=== PATIENT | male | born 2000 | race Caucasian/White ===

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

== ENCOUNTER 2020-07-08 15:28 | Outpatient (CLI) | payer BC, OTHER, SELFPAY ==
[2020-07-08 16:00] LABS: Monoscreen Negative (Negative); Negative Monotest Control Negative (Negative); Positive Monotest Control Positive (Positive)
[2020-07-09 14:22] LABS: SARS-CoV-2 RNA PCR Negative
== END 2020-07-08 15:29 | disposition home or self-care (01) ==
PROVIDERS: PCP Nurse Practitioner Family; Visit Provider Nurse Practitioner Family
DX: R53.81 Other malaise (principal); R53.83 Other fatigue; Z20.828 Contact with and (suspected) exposure to other viral communicable diseases
CPT/HCPCS: 36415; 86308; 87635; C9803; U0003

== ENCOUNTER 2021-01-06 14:55 | Outpatient (CLI) | payer BC, SELFPAY ==
--- NOTE | ~2021-01-06 | XR_ITS ---
EXAMINATION: XR foot LT 2V DATE: 01/06/2021 15:10 INDICATION: General left foot pain TECHNIQUE: Dorsoplantar and lateral views of the left foot were obtained. COMPARISON: None. FINDINGS: Alignment is normal. No fracture. 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 Small marginal osteophytes including along the dorsal head of the f irst metatarsal. Remaining joint spaces in the left foot appear normal. The tibiotalar joint is poorl y profiled limiting assessment for joint space narrowing. Small Achilles calcaneal spur. Soft tissues are unremarkable. IMPRESSION: 1. No acute osseous abnormality. Reviewed, dictated and finalized at location A.
== END 2021-01-06 14:56 | disposition home or self-care (01) ==
LOC: CHSIMG 14:58
PROVIDERS: PCP Nurse Practitioner Family; Visit Provider Nurse Practitioner Family
DX: M79.672 Pain in left foot (principal)
CPT/HCPCS: 73620

== ENCOUNTER 2021-07-09 17:56 | Emergency (ER) | payer BC, SELFPAY ==
[2021-07-09 18:05] VITALS: BP 139/84; PULSE 104; RESP 16; TEMP 37.1; O2SAT 98
--- NOTE | 2021-07-09 18:32 | ED.LOWEXIN ---
HPI - Extremity Injury (Lower) General Chief Complaint: Extremity Injury, Lower Stated Complaint: RT Foot injury Source: patient Mode of arrival: ambulatory History of Present Illness HPI Narrative: this is a 20-year-old male patient presents with right foot pain on the plantar surface does work on his feet all day at at work and is working on a hard concrete surface currently there is no injuries no swelling no bruising has good range of motion. complaint: other ( right foot pain) Injury: Right: foot ( plantar surface tender) Place: work Severity: moderate Related Data Allergies Allergy/AdvReac Type Severity Reaction Status Date / Time No Known Allergies Allergy Verified 07/09/21 18:15 Review of Systems Review of Systems: All systems reviewed & are unremarkable except as noted in HPI and below PMFSH Past Medical History Medical History (Updated 07/09/21 @ 18:35 by Sourav Bowens MD) BMI 40.0-44.9, adult Depression ARCHIE (generalized anxiety disorder) Social History Social History Smoking status: Never smoker Tobacco type: cigarettes Alcohol intake: never Substance use: former Substance use type: does not use and former substance user Gender identity (if verbalized by the patient): Male Exam Const: General: no acute distress Orientation/consciousness: patient oriented x3 HENMT: Head: normal to inspection Eyes: Pupils: Equal, round and reactive pupils present Neck: Neck: normal visual inspection Chest: Chest palpation & inspection: normal inspection of the chest Resp: Effort & Inspection: normal respiratory effort Auscultation: clear to auscultation bilaterally Cardio: Rate: regular rate Rhythm: regular rhythm GI: GI Palp: Yes Soft to palpation Percussion: Yes normal to percussion Back/Spine/Pelvis: Back: no CVA tenderness Skin: General skin exam: normal color Rashes: no rashes Neuro: General: patient oriented x3, moves all extremities, no meningeal signs and no focal motor deficits Extrem: General: normal to inspection and no pedal edema Other: Tender plantar surface of his right foot Psych: Mental Status: mental status grossly normal Affect: normal affect Course Course Emergency Course: pain elicited with palpation of the plantar surface of his right foot, Toradol was administered and patient advised to follow-up with primary care physician. Critical Care Time Critical Care Time Critical Care Time: No Discharge Plan Discharge Clinical Impression: Plantar fasciitis of right foot Patient Disposition: Home, Self-Care Condition: Stable Instructions: Antibiotic Form, Plantar Fasciitis (ED), Plantar Fasciitis Exercises (ED) Additional Instructions: advised take medicine as prescribed and use insoles and follow-up primary care physician. Prescriptions: New naproxen 500 mg tablet 500 mg PO BID Qty: 14 RF: 0 Follow-up/Referrals: Roxana Hernandez NP [Primary Care Provider] - Stand Alone Forms: Work/School Release IP Time of Disposition: 18:38
[2021-07-09] MEDS: KETOROLAC (*BKC) 60 MG/2 ML VIAL IM (19:00)
[2021-07-09 19:15] VITALS: BP 167/87; PULSE 91; RESP 14; O2SAT 94
== END 2021-07-09 19:20 | disposition home or self-care (01) ==
PROVIDERS: Emergency Provider Emergency Medicine; PCP Nurse Practitioner Family
DX: M72.2 Plantar fascial fibromatosis (principal)
CPT/HCPCS: 96372; 99283; J1885

== ENCOUNTER 2021-09-02 18:45 | Emergency (ER) | payer BC, SELFPAY ==
--- NOTE | 2021-09-02 19:00 | ED.NAVMDI ---
HPI - Nausea/Vomiting/Diarrhea General Chief complaint: Nausea/Vomiting/Diarrhea Stated complaint: vomiting, diarrhea Time Seen by Provider: 09/02/21 19:00 Source: patient Mode of arrival: ambulatory Limitations: no limitations History of Present Illness HPI Narrative: 20-year-old with a history of generalized anxiety disorder, depression presented to the ER with a 1 day history of -- nausea with multiple episodes of vomiting. total 5 episodes of vomiting -- multiple episodes of watery diarrhea. Total 8 episodes of diarrhea. -- diffuse abdominal pain. No fever MD elicited complaint: nausea, vomiting, diarrhea and abdominal pain Onset (ago): day(s) ( 1 day) Description of vomiting: watery Description of diarrhea: watery Associated nausea: Yes Associated abdominal pain: Yes Location of pain: diffuse Exacerbating factors: none Relieving factors: none Associated symptoms: denies other symptoms Treatment prior to arrival: other ( Pepto-Bismol) Related Data Allergies Allergy/AdvReac Type Severity Reaction Status Date / Time No Known Allergies Allergy Verified 07/09/21 18:15 Review of Systems Review of Systems: All systems reviewed & are unremarkable except as noted in HPI and below Constitutional: Constitutional: Reports as per HPI Eyes: Eyes: Reports as per HPI ENT: Reports system reviewed and no additional complaints, except as documented Cardiovascular: Cardiovascular: Reports as per HPI and Reports no additional cardiovascular complaints Respiratory: Respiratory: Reports as per HPI and Reports no additional respiratory complaints Gastrointestinal: Gastrointestinal: Reports as per HPI, Reports abdominal pain, Reports diarrhea, Reports nausea and Reports vomiting Genitourinary: Genitourinary: Reports no additional male genitourinary complaints Musculoskeletal: Musculoskeletal: Reports no additional musculoskeletal complaints Integumentary/Breasts: Skin/Breast: Reports system reviewed and no additional complaints, except as docu Neurologic: Reports system reviewed and no additional complaints, except as documented Psychiatric: Psychiatric: Reports no additional psychiatric complaints and Reports as per HPI Endocrine: Endocrine: Reports no additional endocrine complaints Hematologic/Lymphatic: Hematologic/Lymphatic: Reports no additional hematologic/lymphatic complaints Allergic/Immunologic: Allergic/Immunologic: Reports no additional allergic/immunologic complaints [facility] Past Medical History Medical History (Updated 09/02/21 @ 20:17 by Trey العارقي MD) BMI 40.0-44.9, adult Depression ARCHIE (generalized anxiety disorder) Social History Social History Smoking status: Never smoker Tobacco type: cigarettes Alcohol intake: never Substance use: former Substance use type: does not use and former substance user Gender identity (if verbalized by the patient): Male Exam Const: General: no acute distress Orientation/consciousness: patient oriented x3 HENMT: Head: normal to inspection Eyes: Cornea: corneas normal Pupils: Equal, round and reactive pupils present EOM: EOMs intact bilaterally Neck: Neck: normal visual inspection and no lymphadenopathy Chest: Chest palpation & inspection: normal inspection of the chest Resp: Effort & Inspection: normal respiratory effort Cardio: Rate: regular rate Rhythm: regular rhythm GI: GI Palp: Yes Soft to palpation : Testes: Testes normal Back/Spine/Pelvis: Back: no CVA tenderness Skin: General skin exam: normal color Neuro: General: patient oriented x3, moves all extremities, no meningeal signs and no focal motor deficits Extrem: General: normal to inspection Psych: Appearance: grossly normal Mental Status: mental status grossly normal Thought content: Yes Normal thought content present Course Vital Signs Vital signs: Vital Signs Temperature 36.5 C 09/02/21 19
[2021-09-02 19:03] VITALS: BP 127/83; PULSE 104; RESP 18; TEMP 36.5; O2SAT 97
[2021-09-02] MEDS: ONDANSETRON HCL ODT 4 MG TABLET PO ×2 (19:21→20:30)
[2021-09-02 19:26] LABS: Basophils Absolute Auto 0.06 K/mm3 (0.00-0.10); Basophils Percent Auto 0.5 % (0.0-1.0); Hematocrit 49.7 % (40.0-54.0); Hemoglobin 16.9 g/dL (14.0-18.0); Immature Granulocyte Absolute 0.06 K/mm3 (0.00-0.00); Immature Granulocyte Percent A 0.5 % (0.0-0.0); Lymphocytes Absolute Auto 0.61 K/mm3 (1.10-4.50); Lymphocytes Percent Auto 4.9 % (18.0-42.0); Mean Corpuscular Volume 79.4 fL (78.0-102.0); Mean Platelet Volume 9.8 fl (8.7-11.0); Monocytes Absolute Auto 0.57 K/mm3 (0.10-0.90); Monocytes Percent Auto 4.6 % (2.0-11.0); Neutrophils Absolute Auto 11.2 K/mm3 (1.7-7.2); Neutrophils Percent Auto 89.5 % (50.0-70.0); Platelet Count Result 356 K/mm3 (150-420); Red Blood Count 6.26 M/mm3 (4.70-6.10); Red Cell Distribution Width 12.6 % (11.6-14.4); White Blood Count 12.5 K/mm3 (4.8-10.8)
[2021-09-02 19:34] LABS: Add Urine Microscopic? YES; Appearance Urine Clear (Clear); Bilirubin Urine Negative (Negative); Blood Urine Negative (Negative); Color Urine Yellow (Yellow); Glucose Urine UA Negative (Negative); Ketones Urine Trace (Negative); Leukocyte Esterase Ur Negative (Negative); Nitrate Urine Negative (Negative); Protein Urine Negative (Negative); Specific Grav Ur >= 1.030 (1.010-1.020); Urobilinogen Urine 0.2 mg/dL (0.2-1.0)
[2021-09-02 19:37] LABS: INR 1.1; Prothrombin Time 11.7 Seconds (9.50-12.10)
[2021-09-02 19:38] LABS: Alanine Aminotransferase 33 U/L (16-63); Albumin Level 4.2 g/dL (3.4-5.0); Alkaline Phosphatase 60 U/L (46-116); Anion Gap 11 mmol/L (8-16); Aspartate Amino Transferase 16 U/L (15-37); Bilirubin,Total 0.9 mg/dL (0.00-1.00); Blood Urea Nitrogen 15 mg/dL (7-18); Calcium 9.1 mg/dL (8.5-10.1); Carbon Dioxide 28 mmol/L (21-32); Chloride 101 mmol/L (98-108); Estimated CRCL calculation 139 ml/min; Estimated Glomerular Filt Rate > 60; Glucose 113 mg/dL (70-99); Lipase 53 U/L (73-393); Osmolality Calculated 291 mOsm/kg (285-295); Sodium 140 mmol/L (136-145); Total Protein 8.6 g/dL (6.4-8.2)
[2021-09-02 19:40] LABS: Bacteria Urine Trace /hpf; Mucus Urine Moderate /lpf; RBC Urine 0-2 /hpf (0-2); WBC Urine 0-3 /hpf (0-3)
[2021-09-02 19:59] LABS: SARS-CoV-2 RNA PCR Negative (Negative)
--- NOTE | 2021-09-02 20:24 | PC.NURSE ---
ERP at bedside discussing lab results and plan of care. Pt given second dose of zofran per ERP order.
[2021-09-02 20:40] VITALS: BP 135/90; PULSE 93; RESP 16; TEMP 36.3; O2SAT 98
== END 2021-09-02 20:42 | disposition home or self-care (01) ==
PROVIDERS: Emergency Provider Internal Medicine Critical Care Medicine; PCP Nurse Practitioner Family
DX: K52.9 Noninfective gastroenteritis and colitis, unspecified (principal); Z20.822 Contact with and (suspected) exposure to COVID-19
CPT/HCPCS: 36415; 80053; 81001; 83690; 85025; 85610; 99283; A9270; C9803; U0003; U0005

== ENCOUNTER 2021-09-14 09:44 | Outpatient (CLI) | payer BC, SELFPAY ==
[2021-09-14 11:04] LABS: Alanine Aminotransferase 68 U/L (16-63); Albumin Level 4.4 g/dL (3.4-5.0); Alkaline Phosphatase 57 U/L (46-116); Anion Gap 9 mmol/L (8-16); Aspartate Amino Transferase 22 U/L (15-37); Bilirubin,Total 0.7 mg/dL (0.00-1.00); Blood Urea Nitrogen 13 mg/dL (7-18); Calcium 9.7 mg/dL (8.5-10.1); Carbon Dioxide 30 mmol/L (21-32); Chloride 103 mmol/L (98-108); Cholesterol 151 mg/dL (0-200); Estimated Glomerular Filt Rate > 60; Glucose 84 mg/dL (70-99); HDL Direct 30 mg/dL (40-60); LDL Cholesterol Calculated 109 mg/dL (<130); Osmolality Calculated 293 mOsm/kg (285-295); Potassium 4.3 mmol/L (3.5-5.1); Sodium 142 mmol/L (136-145); Total Protein 8.5 g/dL (6.4-8.2); Triglycerides 60 mg/dL (0-150)
== END 2021-09-14 09:45 | disposition home or self-care (01) ==
LOC: CHSLAB 09:47
PROVIDERS: PCP Nurse Practitioner Family; Visit Provider Nurse Practitioner Family
DX: Z00.00 Encounter for general adult medical examination without abnormal findings (principal)
CPT/HCPCS: 36415; 80053; 80061